=== PATIENT | male | born 1985 | race African-American/Black ===

== ENCOUNTER 2018-03-19 19:54 | Emergency (ER) | payer OTHER ==
[2018-03-19 20:18] VITALS: RESP 18
[2018-03-19] MEDS ORDERED: IBUPROFEN 200 MG TAB PO STA (20:26)
--- NOTE | 2018-03-19 21:39 | XR ---
PROCEDURE: XR thoracic spine complete 5 views DATE AND TIME: 03/19/2018 8:52 PM REFERRING PHYSICIAN: Kem Warren CLINICAL INDICATION: [facility], Pain TECHNIQUE: Department protocol. COMPARISON: None FINDINGS: There is no fracture or malalignment. The soft tissues are unremarkable. IMPRESSION: NO ACUTE PROCESS.
--- NOTE | 2018-03-19 22:15 | ED ---
General Adult HPI - General Chief complaint: Back Pain/Injury Stated complaint: [facility] back pain Time Seen by Provider: 03/19/18 20:22 Source: patient, RN notes reviewed Mode of arrival: ambulatory Limitations: no limitations - History of Present Illness Initial comments: 32-year-old male presents to the emergency department for a chief complaint of thoracic back pain times one day. Patient was at work when he was picking up a heavy bin and felt the pain in his mid back. Patient has not had Motrin or Tylenol for pain. Patient denies any other injuries. Patient denies bladder or bowel changes. Patient denies IV drug abuse. Patient denies any recent fevers or chills. Patient denies any saddle anesthesia. No neck pain or lumbar spine pain. Patient has no other complaints at this time including shortness of breath, chest pain, abdominal pain, nausea or vomiting, headache, or visual changes. - Related Data Previous Rx's Medication Instructions Recorded Ibuprofen [Motrin] 600 mg PO Q6HR PRN #20 tab 03/19/18 Allergies Allergy/AdvReac Type Severity Reaction Status Date / Time No Known Allergies Allergy Verified 03/19/18 20:18 Review of Systems ROS Statement: Those systems with pertinent positive or pertinent negative responses have been documented in the HPI. ROS Other: All systems not noted in ROS Statement are negative. Past Medical History Past Medical History: Asthma History of Any Multi-Drug Resistant Organisms: None Reported Past Surgical History: No Surgical Hx Reported Past Psychological History: No Psychological Hx Reported Smoking Status: Current every day smoker Past Alcohol Use History: Occasional Past Drug Use History: None Reported General Exam Limitations: no limitations General appearance: alert, in no apparent distress Head exam: Present: atraumatic, normocephalic, normal inspection Eye exam: Present: normal appearance ENT exam: Present: normal exam, mucous membranes moist Neck exam: Present: normal inspection, full ROM. Absent: tenderness, meningismus, lymphadenopathy Respiratory exam: Present: normal lung sounds bilaterally. Absent: respiratory distress, wheezes, rales, rhonchi, stridor Cardiovascular Exam: Present: regular rate, normal rhythm, normal heart sounds. Absent: systolic murmur, diastolic murmur, rubs, gallop, clicks Extremities exam: Present: normal capillary refill (Refill less than 2 seconds and pedal pulse 2+ in lower extremities bilaterally.) Back exam: Present: full ROM (Patient has about 90 of flexion and 20 extension. He is able to twist but that does cause him discomfort in his mid back.), paraspinal tenderness (Patient also has bilateral thoracic paraspinal tenderness.), vertebral tenderness (Tenderness to the thoracic spine. No tenderness to the cervical or lumbar spine). Absent: CVA tenderness (R), CVA tenderness (L) Course Vital Signs 03/19/18 03/19/18 20:16 22:25 Temperature 98.6 F 98.2 F Pulse Rate 78 72 Respiratory 18 18 Rate Blood Pressure 138/79 130/70 O2 Sat by Pulse 98 98 Oximetry Medical Decision Making - Medical Decision Making 32-year-old male presents to the emergency determine for a chief complaint of mid back pain times one day. Patient was at work lifting a heavy bin when he felt the pain. Patient denies any back surgeries or any other injuries to the back. Patient denies saddle anesthesia or bladder or bowel changes. Patient denies shooting pain in legs bilaterally. On exam patient does have some thoracic spine tenderness as well as thoracic paraspinal tenderness. Patient is able to flex and extend the back without difficulty but does have mild discomfort in the thoracic spine. Mild discomfort with twisting as well. X- ray shows no acute fracture or dislocation. Patient given Motrin in the emergency department which helped with his pain. Patient will be given a prescription for Motrin. He is to follow up with primary care in 1-2 days. He was given tomorrow off work to rest and ice the back. He will return to the emergency department if he has any worsening symptoms. Disposition Clinical Impression: Back pain Disposition: HOME SELF-CARE Condition: Good Instructions: Acute Low Back Pain (ED) Additional Instructions: Please take Motrin or Tylenol for pain. Please rest and ice the back. Please return to the emergency department if you have any worsening symptoms such as bladder or bowel changes or severe pain. Follow-up with primary care and [facility] in one to 2 days. Prescriptions: Ibuprofen [Motrin] 600 mg PO Q6HR PRN #20 tab PRN Reason: Pain Is patient prescribed a controlled substance at d/c from ED?: No Referrals: Isatu Pereyra MD [Primary Care Provider] - 1-2 days Time of Disposition: 22:15
[2018-03-19 22:29] VITALS: BP 130/70; PULSE 72; TEMP 98.2
== END 2018-03-19 22:25 | disposition home or self-care (01) ==
LOC: EC 19:54
DX: M54.6 Pain in thoracic spine (principal); F17.200 Nicotine dependence, unspecified, uncomplicated
CPT/HCPCS: 72072; 99283